=== PATIENT | female | born 1975 ===

== ENCOUNTER 2018-02-22 10:21 | Emergency (ER) | payer OTHER ==
[2018-02-22 10:22] VITALS: BMI 36.1
[2018-02-22 10:41] VITALS: BP 124/77; PULSE 83; RESP 18; TEMP 99.5; O2SAT 98
--- NOTE | 2018-02-22 12:09 | C.PDOC ---
History Of Present Illness 42 y/o female presents to ED with c/o right hand pain and tingling for "months". Pt notes usually it comes and goes but since yesterday it has been persistent. 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 Pain is aggravated by certain movement. She was evaluated by a clinic last week for the same symptoms, had neck XR done and was told everything looked good. Patient denies trauma, fever, redness, chest pain, sob, neck pain, back pain or any other complaints at this time. 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) History/Exam Limitations: no limitations Onset/Duration Of Symptoms: Intermittent Episodes Current Symptoms Are (Timing): Still Present Quality: "Pain" Past Medical History Reviewed: Historical Data, Nursing Documentation, Vital Signs Vital Signs: Last Vital Signs Temp 99.5 F 02/22/18 10:39 Pulse 83 02/22/18 10:39 Resp 18 02/22/18 10:39 BP 124/77 02/22/18 10:39 Pulse Ox 98 02/22/18 10:39 - Medical History PMH: Fractures Surgical History: No Surg Hx - [facility] Procedures MANUAL ASSIST DELIV NEC (11/22/12) Family History: States: No Known Family Hx - Social History Hx Tobacco Use: Yes Hx Alcohol Use: Yes Hx Substance Use: No - Immunization History Hx Tetanus Toxoid Vaccination: No Hx Influenza Vaccination: No (\\) Hx Pneumococcal Vaccination: No Review Of Systems Except As Marked, All Systems Reviewed And Found Negative. Constitutional: Negative for: Fever, Chills Gastrointestinal: Negative for: Nausea, Vomiting Musculoskeletal: Positive for: Arm Pain, Hand Pain Skin: Negative for: Rash Physical Exam - Physical Exam Appears: Non-toxic, No Acute Distress Skin: Warm, Dry, No Rash Head: Atraumatic, Normacephalic Eye(s): bilateral: Normal Inspection, EOMI Nose: Normal Oral Mucosa: Moist Neck: Normal ROM, Supple Chest: Symmetrical Respiratory: No Accessory Muscle Use Extremity: Tenderness (diffusely at wrist and hand, warm to touch, strong pulse, no erythema), Capillary Refill (<2 seconds), No Deformity, Other (Decreased ROM at right wrist secondary to pain) Extremity: Bilateral: Normal Color And Temperature Pulses: Left Radial: Normal, Right Radial: Normal Neurological/Psych: Oriented x3, Normal Motor, Normal Sensation ED Course And Treatment O2 Sat by Pulse Oximetry: 98 (RA) Pulse Ox Interpretation: Normal Progress Note: Wrist immobilizer applied by sheet metal technician. On reassessment, patient is resting comfortably, and is in no acute distress. Patient was instructed to follow up with physician/clinic in 1-2 days for further evaluation. Disposition - Disposition Referrals: Michael Robledo MD [Staff Provider] - Disposition: HOME/ ROUTINE Disposition Time: 12:07 Condition: STABLE Additional Instructions: Rest, ice , and elevate the area. Follow up with the hand specialist in 1-2 days. Return to ER if symptoms persist or worsen. Descansa, hielo, y eleva la kerri. Seguimiento con el especialista en audra en 1- 2 lara. Regrese a la chava de emergencias si los sntomas persisten o empeoran. 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 - Scribe Statement The provider has reviewed the documentation as recorded by the Scribchika Brush All medical record entries made by the Scribe were at my direction and personally dictated by me. I have reviewed the chart and agree that the record accurately reflects my personal performance of the history, physical exam, medical decision making, and the department course for this patient. I have also personally directed, reviewed, and agree with the discharge instructions and disposition.
== END 2018-02-22 12:19 | disposition home or self-care (01) ==
LOC: C.ER 10:21
DX: M77.8 Other enthesopathies, not elsewhere classified (principal)

== ENCOUNTER 2018-02-25 11:34 | Emergency (ER) | payer OTHER ==
[2018-02-25 11:34] VITALS: BMI 36.1
[2018-02-25 12:18] VITALS: TEMP 98.5
[2018-02-25 13:28] LABS: HCG,QUALITATIVE URINE POSITIVE (NEGATIVE)
[2018-02-25 13:33] LABS: SQUAMOUS EPITHIAL 1 /hpf (0-5); URINE BILIRUBIN NEGATIVE (NEGATIVE); URINE BLOOD 3+ (NEGATIVE); URINE CLARITY Clear (Clear); URINE COLOR Yellow (YELLOW); URINE GLUCOSE (UA) NORMAL (Normal); URINE LEUKOCYTE ESTERASE NEG Leu/uL (Negative); URINE PROTEIN NEGATIVE (NEGATIVE)
[2018-02-25 14:28] LABS: BASO # 0.1 K/uL (0.0-0.2); BASO % 0.8 % (0.0-2.0); EOS # 0.2 K/uL (0.0-0.7); EOS % 2.4 % (0.0-4.0); HEMOGLOBIN 12.7 g/dL (11.0-16.0); LYMPH # 1.8 K/uL (1.0-4.3); LYMPH % 28.2 % (20.0-40.0); MEAN CELL VOLUME 87.9 fL (81.0-99.0); MEAN CORPUSCULAR HEMOGLOBIN 29.1 pg (27.0-31.0); MEAN CORPUSCULAR HGB CONC 33.1 g/dL (33.0-37.0); MEAN PLATELET VOLUME 9.3 fL (7.2-11.7); MONO # 0.5 K/uL (0.0-0.8); MONO % 7.8 % (0.0-10.0); NEUT # 3.9 K/uL (1.8-7.0); NEUT % 60.8 % (50.0-75.0); RBC 4.36 Mil/uL (3.80-5.20); RED CELL DISTRIBUTION WIDTH 15.3 % (11.5-14.5); WHITE BLOOD COUNT 6.4 K/uL (4.8-10.8)
--- NOTE | 2018-02-25 15:14 | C.PDOC ---
History Of Present Illness 42 year old female presents to the ED for evaluation of lower abdominal pain and vaginal bleeding which began this morning. Patient notes her last menstrual period was on 01/20 and she had a positive at-home test. Patient is . She denies fever, chills, diarrhea. Time Seen by Provider: 02/25/18 13:18 Chief Complaint (Nursing): Female Genitourinary History Per: Patient History/Exam Limitations: no limitations Onset/Duration Of Symptoms: Hrs Current Symptoms Are (Timing): Still Present Quality Of Discomfort: "Pain" Associated Symptoms: denies: Fever, Chills, Diarrhea Additional History Per: Patient Abnormal Vaginal Bleeding: Yes Last Menstral Period: 01/20/2018 : 6 Para: 5 Past Medical History Reviewed: Historical Data, Nursing Documentation, Vital Signs Vital Signs: Last Vital Signs Temp 98.5 F 02/25/18 12:12 Pulse 73 02/25/18 12:12 Resp 19 02/25/18 12:12 BP 110/75 02/25/18 12:12 Pulse Ox 99 02/25/18 12:12 - Medical History PMH: Fractures Surgical History: No Surg Hx - [facility] Procedures MANUAL ASSIST DELIV NEC (11/22/12) Family History: States: Unknown Family Hx - Social History Hx Tobacco Use: Yes Hx Alcohol Use: Yes Hx Substance Use: No - Immunization History Hx Tetanus Toxoid Vaccination: No Hx Influenza Vaccination: No (\\) Hx Pneumococcal Vaccination: No Review Of Systems Constitutional: Negative for: Fever, Chills Gastrointestinal: Positive for: Abdominal Pain (lower abdomen ). Negative for: Diarrhea Genitourinary: Positive for: Vaginal Bleeding Physical Exam - Physical Exam Appears: Non-toxic, No Acute Distress Skin: Normal Color, Warm, Dry Head: Atraumatic, Normacephalic Eye(s): bilateral: Normal Inspection Oral Mucosa: Moist Neck: Supple Chest: Symmetrical, No Deformity, No Tenderness Cardiovascular: Rhythm Regular, No Murmur Respiratory: Normal Breath Sounds, No Rales, No Rhonchi, No Wheezing Gastrointestinal/Abdominal: Soft, Tenderness (suprapubic ), No Guarding, No Rebound Pelvic: Normal External Exam, Vaginal Bleeding (moderate), No Cervical Motion Tenderness, No Cervix Open Extremity: Normal ROM, Capillary Refill (less than 2 seconds ) Neurological/Psych: Oriented x3, Normal Speech, Normal Cognition ED Course And Treatment - Laboratory Results Result Diagrams: 02/25/18 14:13 O2 Sat by Pulse Oximetry: 99 (on RA) Pulse Ox Interpretation: Normal - Other Rad OB transvaginal ultrasound X-Ray: Read By Radiologist Interpretation: Date of service: 02/25/2018. PROCEDURE: OB Pelvic Ultrasound. HISTORY: threatened ab. COMPARISON: None available. FINDINGS: UTERUS: Single intrauterine gestation. Yolk sac is visualized. No pole is identified on the current examination. Gestational sac diameter measures 0.72 cm too small to characterize gestational age. Maddy-gestational hemorrhage: None. Uterus measures 8.9 x 4.9 x 5.1 cm. Anteverted. No mass. CERVIX: Cervix measures 2.2 cm. No cervical abnormality seen. RIGHT OVARY: Measures 3.0 x 2.3 x 2.9 cm. No mass. Normal flow. There are 2 cysts measuring 1.3 cm and 1.0 cm. LEFT OVARY: Measures 2.0 x 1.8 x 2.1 cm. No mass. Normal flow. FREE FLUID: None. OTHER FINDINGS: None. IMPRESSION: Single intrauterine gestational sac too small to characterize gestational age. Yolk sac is visu alized however no pole is identified on the current examination. Cervix measures 2.2 cm. Medical Decision Making Medical Decision Making: Progress: Bloodwork, urinalysis, OB Transvaginal Ultrasound ordered and reviewed. Tylenol PO and Zofran IVP given. Patient advised to follow up with ecdis n navigation operator for repeat ultrasound. Disposition - Disposition Disposition: HOME/ ROUTINE Disposition Time: 16:58 Condition: GOOD Additional Instructions: HUMBERTO JUDGE, thank you for letting us take care of you today. Your provider was Anahy Marion MD and you were treated for 4 WEEKS PREG, VAGINAL BLEED,ABD PAIN. The emergency medical care you received today was directed at your acute symptoms. If you were prescribed any medication, please fill it and take as directed. It may take several days for your symptoms to resolve. Return to the Emergency Department if your symptoms worsen, do not improve, or if you have any other problems. Please contact your doctor or call one of the physicians/clinics you have been referred to that are listed on the Patient Visit Information form that is included in your discharge packet. Bring any paperwork you were given at discharge with you along with any medications you are taking to your follow up visit. Our treatment cannot replace ongoing medical care by a primary care provider outside of the emergency department. Thank you for allowing the [facility] team to be part of your care today. If you had an X-Ray or CT scan: A Radiologist will review the ED reading if any change in treatment is needed we will contact you. If you had a blood, urine, or wound culture: It will take several days for the results, if any change in treatment is needed we will contact you. If you had an STI test: It will take 48 hours for the results. Please call after 1 week if you have not heard back. PLEASE FOLLOW UP WITH GL[facility]TER SOON POSSIBLE FOR A REPEAT ULTRASOUND. Instructions: Threatened Miscarriage (DC) Forms: [employer] (Occitan) Print Language: SOUTH KOREAN - Clinical Impression Clinical Impression: Threatened - Scribe Statement The provider has reviewed the documentation as recorded by the Scribe (Jolie Sánchez) Provider Attestation: All medical record entries made by the Scribe were at my direction and personally dictated by me. I have reviewed the chart and agree that the record accurately reflects my personal performance of the history, physical exam, medical decision making, and the department course for this patient. I have also personally directed, reviewed, and agree with the discharge instructions and disposition.
--- NOTE | 2018-02-25 16:30 | US ---
Date of service: 02/25/2018 PROCEDURE: OB Pelvic Ultrasound HISTORY: threatened ab COMPARISON: None available. FINDINGS: UTERUS: Single intrauterine gestation. Yolk sac is visualized. No pole is identified on the current examination. Gestational sac diameter measures 0.72 cm too small to characterize gestational age. Maddy-gestational hemorrhage: None. Uterus measures 8.9 x 4.9 x 5.1 cm. Anteverted. No mass CERVIX: Cervix measures 2.2 cm. No cervical abnormality seen. RIGHT OVARY: Measures 3.0 x 2.3 x 2.9 cm. No mass. Normal flow. There are 2 cysts measuring 1.3 cm and 1.0 cm. LEFT OVARY: Measures 2.0 x 1.8 x 2.1 cm. No mass. Normal flow. FREE FLUID: None. OTHER FINDINGS: None. IMPRESSION: Single intrauterine gestational sac too small to characterize gestational age. Yolk sac is visualized however no pole is identified on the current examination. Cervix measures 2.2 cm.
[2018-02-25 17:13] VITALS: BP 112/70; PULSE 74; RESP 20
[2018-02-26 13:34] VITALS: O2SAT 99
== END 2018-02-25 17:13 | disposition home or self-care (01) ==
LOC: C.ER 11:34
DX: O20.0 Threatened abortion (principal)
CPT/HCPCS: 76805; 76817; 81001; 84702; 84703; 85025; 86850; 86900; 96374; 99284; J2405

== ENCOUNTER 2018-02-28 10:01 | Emergency (ER) | payer OTHER ==
[2018-02-28 10:02] VITALS: BMI 36.1
[2018-02-28 10:06] VITALS: RESP 18
[2018-02-28] MEDS ORDERED: Sodium Chloride 0.9% 1,000 ML IV ONE (10:10)
[2018-02-28] MEDS ORDERED: Sodium Chloride 0.9% 1,000 ML ONE (11:10)
[2018-02-28 11:12] LABS: BASO # 0.1 K/uL (0.0-0.2); BASO % 1.2 % (0.0-2.0); EOS # 0.2 K/uL (0.0-0.7); EOS % 2.5 % (0.0-4.0); HEMOGLOBIN 13.1 g/dL (11.0-16.0); LYMPH # 1.8 K/uL (1.0-4.3); LYMPH % 23.3 % (20.0-40.0); MEAN CELL VOLUME 87.7 fL (81.0-99.0); MEAN CORPUSCULAR HEMOGLOBIN 29.5 pg (27.0-31.0); MEAN CORPUSCULAR HGB CONC 33.6 g/dL (33.0-37.0); MEAN PLATELET VOLUME 8.9 fL (7.2-11.7); MONO # 0.5 K/uL (0.0-0.8); MONO % 6.9 % (0.0-10.0); NEUT % 66.1 % (50.0-75.0); RBC 4.43 Mil/uL (3.80-5.20); RED CELL DISTRIBUTION WIDTH 15.2 % (11.5-14.5); WHITE BLOOD COUNT 7.6 K/uL (4.8-10.8)
[2018-02-28 11:18] LABS: SQUAMOUS EPITHIAL 2 /hpf (0-5); URINE BACTERIA RARE (<OCC); URINE BILIRUBIN NEGATIVE (NEGATIVE); URINE BLOOD 3+ (NEGATIVE); URINE CLARITY Clear (Clear); URINE COLOR Yellow (YELLOW); URINE GLUCOSE (UA) NORMAL (Normal); URINE LEUKOCYTE ESTERASE NEG Leu/uL (Negative); URINE PROTEIN NEGATIVE (NEGATIVE); URINE UROBILINOGEN NORMAL mg/dL (0.2-1.0)
[2018-02-28 11:27] LABS: ALB/GLOB RATIO 1.4 (1.0-2.1); ALBUMIN 4.2 g/dL (3.5-5.0); ALT/SGPT 178 U/L (9-52); AST/SGOT 54 U/L (14-36); BLOOD UREA NITROGEN 11 mg/dL (7-17); CALCIUM 8.9 mg/dl (8.6-10.4); GFR NON-AFRICAN AMERICAN > 60; LIPASE 77 U/L (23-300)
--- NOTE | 2018-02-28 11:47 | US ---
Indication: Vaginal bleeding during Comparison: 1st trimester ultrasound performed 02/25/18 Technique: Transvaginal pelvic ultrasound. Findings: The uterus measures approximately 8.6 x 4.7 x 5.6 cm. Anteverted. The cervix measures approximately 3.2 cm. The gestational sac measures 1.2 cm and is compatible with a gestational age of 5 weeks 2 days. 3 mm yolk sac. The pole is not identified. The right ovary measures 2.7 x 2.4 x 2.5 cm and contains 1.5 x 0.7 x 1.2 cm corpus luteal cyst. Blood flow is demonstrated to the right ovary. The left ovary is not visualized. Impression: Intrauterine gestational sac consistent with gestational age 5 weeks 2 days. 3 mm yolk sac is identified. There is no evidence of pole. Recommend correlation with quantitative beta HCG, DOCK COORDINATOR consultation, and short-term follow-up ultrasound.
[2018-02-28 13:37] VITALS: BP 106/73; PULSE 73; TEMP 98.6; O2SAT 99
--- NOTE | 2018-02-28 15:23 | C.PDOC ---
History Of Present Illness 42 year old female, who is with LMP 01/23, is sent to the ED from clinic for evaluation of vaginal bleeding which began 3 days ago. Patient was seen in the ED 3 days ago and was discharged with instructions to follow up today. Patient is also c/o mild lower abdominal pain with mild nausea and mild vomiting. Patient denies fever, chills, and dysuria. Time Seen by Provider: 02/28/18 10:07 Chief Complaint (Nursing): Female Genitourinary History Per: Patient History/Exam Limitations: no limitations Onset/Duration Of Symptoms: Days (3) Current Symptoms Are (Timing): Still Present Quality Of Discomfort: "Pain" Associated Symptoms: Nausea, Vomiting. denies: Fever, Chills, Urinary Symptoms Additional History Per: Patient Past Medical History Reviewed: Historical Data, Nursing Documentation, Vital Signs Vital Signs: Last Vital Signs Temp 98.6 F 02/28/18 13:36 Pulse 73 02/28/18 13:36 Resp 18 02/28/18 13:36 BP 106/73 02/28/18 13:36 Pulse Ox 99 02/28/18 13:36 - Medical History PMH: Fractures Surgical History: No Surg Hx - [facility] Procedures MANUAL ASSIST DELIV NEC (11/22/12) Family History: States: Unknown Family Hx - Social History Hx Tobacco Use: Yes Hx Alcohol Use: Yes Hx Substance Use: No - Immunization History Hx Tetanus Toxoid Vaccination: No Hx Influenza Vaccination: No (\\) Hx Pneumococcal Vaccination: No Review Of Systems Constitutional: Negative for: Fever, Chills Gastrointestinal: Positive for: Nausea, Vomiting, Abdominal Pain (lower ) Genitourinary: Positive for: Vaginal Bleeding. Negative for: Dysuria Physical Exam - Physical Exam Appears: Non-toxic, No Acute Distress Skin: Normal Color, Warm, Dry Head: Atraumatic, Normacephalic Eye(s): bilateral: Normal Inspection Oral Mucosa: Moist Neck: Supple Chest: Symmetrical, No Deformity, No Tenderness Cardiovascular: Rhythm Regular, No Murmur Respiratory: Normal Breath Sounds, No Rales, No Rhonchi, No Wheezing Gastrointestinal/Abdominal: Soft, Tenderness (minimal, to lower abdomen ), No Guarding, No Rebound Pelvic: Other (deferred) Extremity: Normal ROM, Capillary Refill (less than 2 seconds ) Neurological/Psych: Oriented x3, Normal Speech, Normal Cognition Gait: Steady ED Course And Treatment - Laboratory Results Result Diagrams: 02/28/18 11:04 02/28/18 11:04 O2 Sat by Pulse Oximetry: 99 (on RA) Pulse Ox Interpretation: Normal Medical Decision Making Medical Decision Making: Impression: 42 year old female with vaginal bleeding, lower abdominal pain, n ausea, vomiting Plan: * bloodwork * urinalysis * OB transvaginal ultrasound * Tylenol PO * IV Fluids * reassess and disposition Progress: Bloodwork, urinalysus, OB Transvaginal ultrasound ordered and reviewed. Tylenol PO and IV Fluids given. Disposition - Disposition Referrals: [employer] Juan Antonio Palacio, [Non-Staff] - Disposition: HOME/ ROUTINE Disposition Time: 12:15 Condition: GOOD Additional Instructions: HUMBERTO JUDGE, thank you for letting us take care of you today. The emergency medical care you received today was directed at your acute symptoms. If you were prescribed any medication, please fill it and take as directed. It may take several days for your symptoms to resolve. Return to the Emergency Department if your symptoms worsen, do not improve, or if you have any other problems. Please contact your doctor or call one of the physicians/clinics you have been referred to that are listed on the Patient Visit Information form that is included in your discharge packet. Bring any paperwork you were given at d ischarge with you along with any medications you are taking to your follow up visit. Our treatment cannot replace ongoing medical care by a primary care provider outside of the emergency department. Thank you for allowing the [facility] team to be part of your care today. Follow up with your HEALTHCARE SCIENCE SPECIALIST doctor in 2-3 days for re-evaluation and further management. HUMBERTO JUDGE, daylin por dejarnos cuidar de usted hoy. La atencin mdica de emergencia que recibi hoy se dirigi a kim sntomas agudos. Si le recetaron algn medicamento, llnelo y tmelo segn las indicaciones. Los sntomas pueden tardar varios lara en resolverse. Regrese al Departamento de Emergencias si kim sntomas empeoran, no mejoran o si tiene otros problemas. Comunquese con moses mdico o llame a jennifer de los mdicos / clnicas a los que manzo sido referido que figuran en el formulario de Informacin de visita al paciente que se incluye en moses paquete de ankit. Lleve con usted a moses consulta de seguimiento toda la documentacin que recibi del ankit junto con los medicamentos que est tomando. Nuestro tratamiento no puede reemplazar la atencin mdica continua por parte de un proveedor de atencin primaria fuera de l departamento de emergencias. Daylin por permitir que el equipo de [facility] sea parte de moses atencin hoy. Rahul un seguimiento con moses mdico obstetra / gineclogo en 2 o 3 lara para javon r eevaluacin y manejo adicional. Instructions: Threatened Miscarriage (DC) Forms: Gen Discharge Inst Yi, [employer] [facility] (Yi) - Clinical Impression Clinical Impression: Threatened - Scribe Statement The provider has reviewed the documentation as recorded by the Scribe Provider Attestation: All medical record entries made by the Scribe were at my direction and personally dictated by me. I have reviewed the chart and agree that the record accurately reflects my personal performance of the history, physical exam, medical decision making, and the department course for this patient. I have also personally directed, reviewed, and agree with the discharge instructions and disposition.
== END 2018-02-28 13:42 | disposition home or self-care (01) ==
LOC: C.ER 10:01
DX: O20.0 Threatened abortion (principal); Z3A.01 Less than 8 weeks gestation of pregnancy
CPT/HCPCS: 76817; 80053; 81001; 83690; 84702; 85025; 87086; 96360; 99284; J7030